=== PATIENT | male | born 1975 | race American Indian/Alaskan Native ===

== ENCOUNTER 2017-09-28 00:07 | Emergency (ER) | payer MEDICAID ==
[2017-09-28 00:07] VITALS: BMI 21.2
[2017-09-28 00:20] VITALS: BP 120/75; PULSE 82; O2SAT 99
[2017-09-28 00:23] VITALS: RESP 18; TEMP 98
[2017-09-28] MEDS ORDERED: Sodium Chloride 0.9% 1,000 ML IV STA (04:04)
--- NOTE | 2017-09-28 04:46 | ED PDOC ---
HPI: Abdomen Time Seen by Provider: 09/28/17 03:57 Chief Complaint (Nursing): Abdominal Pain Chief Complaint (Provider): Abdominal Pain History Per: Patient History/Exam Limitations: no limitations Onset/Duration Of Symptoms: Days (x 1) Current Symptoms Are (Timing): Still Present Additional Complaint(s): 42 year old male with a history of pancreatitis and DM presents to the ED complaining of abdominal pain and one episode of nbnb vomiting starting last night. Patient denies fever, chills and shortness of breath. PMD: none provided Past Medical History Reviewed: Historical Data, Nursing Documentation, Vital Signs Vital Signs: Last Vital Signs Temp 98 F 09/28/17 00:21 Pulse 82 09/28/17 00:21 Resp 18 09/28/17 00:21 BP 120/75 09/28/17 00:21 Pulse Ox 99 09/28/17 05:42 - Medical History PMH: COPD, HTN, Pancreatitis Denies: Chronic Kidney Disease - Surgical History Surgical History: Cholecystectomy - Family History Family History: States: Unknown Family Hx, Diabetes (mother), Hypertension ( Mother) - Immunization History Hx Tetanus Toxoid Vaccination: Yes Hx Influenza Vaccination: Yes Hx Pneumococcal Vaccination: No - Home Medications Home Medications: Ambulatory Orders Medication Instructions Recorded Esomeprazole Magnesium [Nexium] 20 mg PO QAM #30 ecc 09/28/17 - Allergies Allergies/Adverse Reactions: Allergies Allergy/AdvReac Type Severity Reaction Status Date / Time No Known Allergies Allergy Verified 09/23/17 09:49 Review of Systems ROS Statement: Except As Marked, All Systems Reviewed And Found Negative Gastrointestinal: Positive for: Vomiting (one episode), Abdominal Pain Physical Exam - Reviewed Nursing Documentation Reviewed: Yes Vital Signs Reviewed: Yes - Physical Exam Appears: Positive for: Non-toxic, No Acute Distress Head Exam: Positive for: ATRAUMATIC, NORMOCEPHALIC Skin: Positive for: Normal Color, Warm, Dry Eye Exam: Positive for: EOMI, Normal appearance, PERRL Neck: Positive for: Normal, Painless ROM, Supple Cardiovascular/Chest: Positive for: Regular Rate, Rhythm. Negative for: Murmur Respiratory: Positive for: Normal Breath Sounds. Negative for: Respiratory Distress Gastrointestinal/Abdominal: Positive for: Tenderness (epigastric tenderness) Extremity: Positive for: Normal ROM. Negative for: Deformity Neurologic/Psych: Positive for: Alert, Oriented. Negative for: Motor/Sensory Deficits - Laboratory Results Result Diagrams: 09/28/17 04:30 09/28/17 04:51 - ECG O2 Sat by Pulse Oximetry: 99 (RA) Pulse Ox Interpretation: Normal Medical Decision Making Medical Decision Making: Time: 03:57 Impression: 42 year old male with epigastric pain in setting of history of chronic pancreatitis Initial Plan: --EKG --CMP --Lipase --Urine dip --CBC with differentials --Normal Saline IV 1,000 mls/hr --Protonix Inj 40 mg IV --Zofran ODT 4 mg PO --Urinalysis Patient has been informed that there is no evidence, in labs and imaging, showing the need for narcotics to be used. Complaint is nearly identical to complaint at [facility] where he was seen 5 days ago. He had a workup-labs and CT reflected nothing different from chronic pancreatitis. He eloped prior to discharging. Labs were reviewed and revealed nothing clinically significant. Patient was informed that ther was no reaosn for narctoics again and he eloped. Scribe Attestation: Documented by Ivett Larsen acting as a scribe for Sharif Davis MD, MD Scribe Attestation: All medical record entries made by the Scribe were at my direction and personally dictated by me. I have reviewed the chart and agree that the record accurately reflects my personal performance of the history, physical exam, medical decision making, and the department course for this patient. I have also personally directed, reviewed, and agree with the discharge instructions and disposition. Disposition - Clinical Impression Clinical Impression: Chronic pancreatitis - Disposition Referrals: Doreen Coronel MD [Medical Doctor] - Disposition: Routine/Home Disposition Time: 05:00 Condition: STABLE Prescriptions: Esomeprazole Magnesium [Nexium] 20 mg PO QAM #30 ecc Instructions: Chronic Pancreatitis Forms: [facility] (Yakut)
[2017-09-28 04:49] LABS: BASO # 0.1 K/uL (0.0-0.2); BASO % 1.1 % (0.0-2.0); EOS # 0.1 K/uL (0.0-0.7); EOS % 1.8 % (0.0-4.0); HEMOGLOBIN 12.4 g/dL (12.0-18.0); LYMPH # 1.4 K/uL (1.0-4.3); LYMPH % 22.2 % (20.0-40.0); MEAN CELL VOLUME 97.1 fl (80.0-94.0); MEAN CORPUSCULAR HEMOGLOBIN 32.6 pg (27.0-31.0); MEAN CORPUSCULAR HGB CONC 33.6 g/dL (33.0-37.0); MEAN PLATELET VOLUME 8.6 fl (7.2-11.7); MONO # 0.7 K/uL (0.0-0.8); MONO % 10.7 % (0.0-10.0); NEUT % 64.2 % (50.0-75.0); NRBC % 0.1 % (0.0-0.0); RBC 3.81 Mil/uL (4.40-5.90); RED CELL DISTRIBUTION WIDTH 13.2 % (11.5-14.5); WHITE BLOOD COUNT 6.2 K/uL (4.8-10.8)
[2017-09-28 05:00] LABS: CALCIUM 9.1 mg/dL (8.4-10.2); GFR AFRICAN-AMERICAN > 60; GFR NON-AFRICAN AMERICAN > 60; LIPASE 66 U/L (23-300)
[2017-09-28 05:04] LABS: ALB/GLOB RATIO 1.2 (1.0-2.1); ALBUMIN 4.4 g/dL (3.5-5.0); ALT/SGPT 36 U/L (21-72); AST/SGOT 44 U/L (17-59); BLOOD UREA NITROGEN 13 mg/dl (9-20)
[2017-09-28] MEDS ORDERED: Alum-Mag Hydrox-Simethicone Susp (30 mL) PO STA (05:09)
[2017-09-28] MEDS ORDERED: Atrop/Hyos/Scop/PhenoB Elixir PO STA (05:10)
--- NOTE | 2017-09-28 09:18 | CARD ---
APPROVED REPORT EKG Measurement Heart [id number] <Conclusion> Normal sinus rhythm with sinus arrhythmia Normal ECG
== END 2017-09-28 05:21 | disposition home or self-care (01) ==
LOC: H.ER 00:07
DX: K86.1 Other chronic pancreatitis (principal); K85.90 Acute pancreatitis without necrosis or infection, unspecified; J44.9 Chronic obstructive pulmonary disease, unspecified; I10 Essential (primary) hypertension
CPT/HCPCS: 80053; 83690; 85025; 93005; 96374; 99283; C9113; J7040

== ENCOUNTER 2018-09-18 12:08 | Emergency (ER) | payer MEDICAID ==
[2018-09-18 12:08] VITALS: BMI 21.2
[2018-09-18 12:12] VITALS: RESP 18
[2018-09-18] MEDS ORDERED: Sodium Chloride 0.9% 1,000 ML IV STA (12:42)
--- NOTE | 2018-09-18 12:50 | ED PDOC ---
HPI: Abdomen Time Seen by Provider: 09/18/18 12:20 Chief Complaint (Nursing): Abdominal Pain Chief Complaint (Provider): Abd Pain History Per: Patient History/Exam Limitations: no limitations Onset/Duration Of Symptoms: Days Pain Scale Rating Of: 5 Location Of Pain/Discomfort: Diffuse Quality Of Discomfort: "Pain" Associated Symptoms: Diarrhea. denies: Fever, Chills, Nausea, Vomiting Exacerbating Factors: denies: None Alleviating Factors: denies: None Last Bowel Movement: Today Additional History Per: Patient Additional Complaint(s): 43 y/o male brought in the ED c/o left upper quad abd pain since yesterday worsening today while at work lifting an object. Pt has medical h/o Chronic Kapadia creatitis and recent Small Bowel Obstruction repair on 09/06/18 in a hospital in "[place]". Pt states this abdominal pain feels like his "pancreatitis pain", different from when he had the small bowel obstruction. pt denies nausea, vomiting, fever, sob and chest pain. Pt states he was given toradol and benadryl yesterday for same with no reaction. Past Medical History Vital Signs: Last Vital Signs Temp 98.9 F 09/18/18 12:23 Pulse 97 H 09/18/18 12:23 Resp 18 09/18/18 12:23 BP 129/88 09/18/18 12:23 Pulse Ox 99 09/18/18 12:23 BERTHA Report Viewed: No - Medical History PMH: Obstructive Bowel, Pancreatitis Denies: COPD (denies 10/08/17), HTN (denies 10/08/17), Chronic Kidney Disease - Surgical History Surgical History: Cholecystectomy Other surgeries: small bowel obstruction repair 09/06/2018 - Family History Family History: States: Unknown Family Hx, Diabetes (mother), Hypertension (Mother) - Social History Alcohol: Other (history of abuse, denies drinking since 2013) Drugs: Other (history of abuse, stopped using 4 yr ago) - Immunization History Hx Tetanus Toxoid Vaccination: Yes Hx Influenza Vaccination: Yes (03/2019) Hx Pneumococcal Vaccination: No - Home Medications Home Medications: Ambulatory Orders Medication Instructions Recorded No Known Home Med 09/03/18 - Allergies Allergies/Adverse Reactions: Allergies Allergy/AdvReac Type Severity Reaction Status Date / Time fentanyl Allergy ITCHING Verified 09/03/18 06:35 ketorolac [From Toradol] Allergy ITCHING Verified 09/03/18 06:35 ondansetron [From Zofran] Allergy ITCHING Verified 09/03/18 06:35 Review of Systems ROS Statement: Except As Marked, All Systems Reviewed And Found Negative Constitutional: Negative for: Fever, Chills, Sweats, Weakness, Malaise Cardiovascular: Negative for: Chest Pain, Palpitations, Edema, Light Headedness Respiratory: Negative for: Cough, Shortness of Breath, SOB with Exertion, Pleuritic Pain, Wheezing Gastrointestinal: Positive for: Diarrhea (loose stools, non bloody), Other (pos for passing gas ). Negative for: Nausea, Vomiting, Abdominal Pain Genitourinary Male: Negative for: Dysuria Neurological: Negative for: Weakness, Confusion, Dizziness Physical Exam - Reviewed Nursing Documentation Reviewed: Yes Vital Signs Reviewed: Yes - Physical Exam Appears: Positive for: Well, Non-toxic, No Acute Distress Head Exam: Positive for: ATRAUMATIC, NORMAL INSPECTION, NORMOCEPHALIC Skin: Positive for: Normal Color, Warm, Dry (mid abd incision site, 1cm healing opening, neg for drainage, erythenma to borders, neg for induration, area of eccymosis to right surgical incision ) Eye Exam: Positive for: EOMI, Normal appearance, PERRL ENT: Positive for: Normal ENT Inspection Neck: Positive for: Normal, Painless ROM Cardiovascular/Chest: Positive for: Regular Rate, Rhythm Respiratory: Positive for: CNT, Normal Breath Sounds Pulses-Radial (L): 2+ Pulses-Radial (R): 2+ Gastrointestinal/Abdominal: Positive for: Normal Exam, Bowel Sounds (bowel sounds throughout. normoactive ), Soft, Tenderness (luq tenderness ). Negative for: Mass, Distended, Guarding, Rebound Back: Positive for: Normal Inspection. Negative for: L CVA Tenderness, R CVA Tenderness Extremity: Positive for: Normal ROM Neurological/Psych: Positive for: Awake, Alert, Normal Tone, Oriented - Laboratory Results Result Diagrams: 09/18/18 12:55 09/18/18 12:55 - ECG O2 Sat by Pulse Oximetry: 99 - Progress ED Course And Treament: CBC CMP LIPASE TORADOL 30MG IV- NO SIGNS OF ALLERGIC REACTION AFTER ADMINISTRATION BENADRYL 50MG IV RE-EVALUATE RECORDS FROM VISIT TO [facility] REVIEWED AND DISCUSSED WITH DR. VAIL AND AGREES WITH PLAN. 1400: PT RE-EVALUATED AT THIS TIME. PT REPORTS PAIN HAS IMPROVED. LABS REVIEWED WBC 5.5, LIPASE WITHIN NORMAL LIMITS. PT ENCOURAGED TO SEE PMD WITHIN 1 WEEK. PT STATES HE WILL MAKE AN APPT TOMORROW TO SEE DR. MCGEE. PT STABLE FOR D/C HOME. PT GIVEN RETURN TO ED PRECAUTIONS. Re-evaluation Time: 14:00 Condition: Re-examined, Improved Disposition - Clinical Impression Clinical Impression: Abdominal pain Counseled Patient/Family Regarding: Diagnosis, Need For Followup - Disposition Referrals: Robert Mcgee MD [Medical Doctor] - Disposition: Routine/Home Disposition Time: 14:00 Condition: IMPROVED Additional Instructions: FOLLOW-UP WITH PMD IN 1 WEEK. Instructions: Acute Abdomen (Belly Pain), Adult (DC) Print Language: HONG K[place]ER - POA Present On Arrival: None
[2018-09-18] MEDS ORDERED: DiphenhydrAMINE 50 mg/ml Inj IVP STA (12:59)
[2018-09-18 13:17] LABS: BASO % 0.8 % (0.0-2.0); EOS # 0.1 K/uL (0.0-0.7); EOS % 1.6 % (0.0-4.0); HEMOGLOBIN 10.6 g/dL (12.0-18.0); LYMPH % 18.8 % (20.0-40.0); MEAN CELL VOLUME 97.4 fl (80.0-94.0); MEAN CORPUSCULAR HEMOGLOBIN 32.4 pg (27.0-31.0); MEAN CORPUSCULAR HGB CONC 33.3 g/dL (33.0-37.0); MEAN PLATELET VOLUME 6.5 fl (7.2-11.7); MONO # 0.5 K/uL (0.0-0.8); MONO % 9.2 % (0.0-10.0); NEUT # 3.8 K/uL (1.8-7.0); NEUT % 69.6 % (50.0-75.0); NRBC % 0.1 % (0.0-0.0); RBC 3.28 Mil/uL (4.40-5.90); RED CELL DISTRIBUTION WIDTH 13.6 % (11.5-14.5); WHITE BLOOD COUNT 5.5 K/uL (4.8-10.8)
[2018-09-18 13:22] LABS: ALB/GLOB RATIO 1.2 (1.0-2.1); ALBUMIN 4.1 g/dL (3.5-5.0); ALT/SGPT 36 U/L (21-72); AST/SGOT 39 U/L (17-59); BLOOD UREA NITROGEN 8 mg/dl (9-20); CALCIUM 9.4 mg/dL (8.4-10.2); GFR NON-AFRICAN AMERICAN > 60; LIPASE 51 U/L (23-300)
[2018-09-18] MEDS ORDERED: DiphenhydrAMINE 50 mg/ml Inj ONE (13:30)
[2018-09-18 14:24] VITALS: BP 125/77; PULSE 76; TEMP 98.3; O2SAT 100
== END 2018-09-18 14:26 | disposition home or self-care (01) ==
LOC: H.ER 12:08
DX: R10.9 Unspecified abdominal pain (principal); Z88.8 Allergy status to other drugs, medicaments and biological substances
CPT/HCPCS: 80053; 83690; 85025; 96374; 96375; 99283; J1200; J1885